=== PATIENT | female | born 2000 | race Caucasian/White ===

== ENCOUNTER 2023-05-26 21:35 | Day surgery (SDC) | payer MEDICAID ==
[2023-05-26 21:59] VITALS: BMI 31.9
[2023-05-26] MEDS ORDERED: Fluconazole 100 MG TAB PO SCH (23:45)
[2023-05-27] MEDS: Acetaminophen 500 MG TAB PO SCH (00:08)
== END 2023-05-27 00:20 | disposition home or self-care (01) ==
LOC: CSHLD/OP 21:35
PROVIDERS: ATTEND Obstetrics & Gynecology
DX: O23.592 Infection of other part of genital tract in pregnancy, second trimester (principal); N89.8 Other specified noninflammatory disorders of vagina; O98.812 Other maternal infectious and parasitic diseases complicating pregnancy, second trimester; B37.31 Acute candidiasis of vulva and vagina; O99.891 Other specified diseases and conditions complicating pregnancy; M54.9 Dorsalgia, unspecified; Z79.899 Other long term (current) drug therapy; Z3A.25 25 weeks gestation of pregnancy
CPT/HCPCS: 87480; 87510; 87660; 99284

== ENCOUNTER 2023-08-31 18:32 | Day surgery (SDC) | payer OTHER ==
[2023-08-31 19:01] VITALS: BMI 37.5
[2023-08-31] MEDS ORDERED: hydrALAZINE 20 MG/ML VIAL SLOW IVP PRN (19:33)
[2023-08-31 20:03] LABS: Bilirubin Neg (Negative); Blood, Urine Negative (Negative); Glucose, Urine (Dipstick) Normal (Negative); Ketone, Urine 5 mg/dL (Negative); Leukocyte 100 (Negative); Nitrite Negative (Negative); Protein, Urine (Dipstick) 15 mg/dl (Neg-Trace)
[2023-08-31 20:08] LABS: Clarity Hazy (Clear)
[2023-08-31 20:14] LABS: CAUTI Indications for Culture Pregnancy; RBC/HPF 0-3 HPF (0-3)
[2023-08-31 20:15] LABS: Bacteria/HPF 2+ HPF (None Seen); Mucous/LPF 2+ LPF (<2+)
[2023-08-31 20:16] LABS: Urine Culture Reflex Yes Yes
[2023-08-31 21:06] LABS: Fetal Membranes Rupture No Membranes Rupture (No Rupture)
== END 2023-08-31 22:47 | disposition home or self-care (01) ==
LOC: CSHLD/OP 18:32
PROVIDERS: ATTEND Family Medicine
DX: O99.891 Other specified diseases and conditions complicating pregnancy (principal); R03.0 Elevated blood-pressure reading, without diagnosis of hypertension; O23.43 Unspecified infection of urinary tract in pregnancy, third trimester; O47.1 False labor at or after 37 completed weeks of gestation; O99.283 Endocrine, nutritional and metabolic diseases complicating pregnancy, third trimester; E86.0 Dehydration; Z79.899 Other long term (current) drug therapy; Z3A.38 38 weeks gestation of pregnancy
CPT/HCPCS: 76819; 81001; 84112; 87086; 99284

== ENCOUNTER 2023-09-05 09:29 | Inpatient (IN) | payer OTHER ==
[2023-09-05 10:11] VITALS: BMI 37.5
[2023-09-05] MEDS ORDERED: hydrALAZINE 20 MG/ML VIAL SLOW IVP PRN ×3 (10:32→20:19)
[2023-09-05 11:05] LABS: Fetal Membranes Rupture RUPTURE DETECTED (No Rupture)
[2023-09-05] MEDS ORDERED: HYDROcodone/Acetaminophen 5/325 mg Tablet PO PRN ×2 (12:17→20:19)
[2023-09-05] MEDS ORDERED: Acetaminophen 500 MG TAB PO PRN (12:17)
[2023-09-05] MEDS ORDERED: fentaNYL 50 mcg/mL 1 mL Vial SLOW IVP PRN (12:17)
[2023-09-05] MEDS ORDERED: Lidocaine 1% (PF) 30 ML VIAL SC PRN (12:17)
[2023-09-05] MEDS ORDERED: Methylergonovine 0.2 MG/ML VIAL IM PRN (12:17)
[2023-09-05] MEDS ORDERED: Diphenoxylate HCl/Atropine Tablet PO PRN (12:17)
[2023-09-05] MEDS ORDERED: Tranexamic Acid 1,000 MG/10 ML VIAL IVP PRN (12:17)
[2023-09-05] MEDS ORDERED: Carboprost 250 MCG/ML AMP IM PRN (12:17)
[2023-09-05] MEDS ORDERED: Misoprostol 200 MCG TAB PR PRN (12:17)
[2023-09-05] MEDS ORDERED: Ondansetron PF 4 MG/2 ML Vial IVP PRN ×2 (12:17→15:00)
[2023-09-05] MEDS ORDERED: Promethazine HCl 25 MG/ML VIAL IM PRN ×2 (12:17→15:00)
[2023-09-05] MEDS ORDERED: Oxytocin 30 units/NS 500 ML 500 ML IV SCH ×2 (12:30)
[2023-09-05 12:42] LABS: Hematocrit 31.9 % (34.9-44.5); Hemoglobin 10.1 g/dL (12.0-15.5); Mean Corpuscular HGB CONC 31.7 g/dL (32.0-36.0); Mean Corpuscular Hemoglobin 24.2 pg (27.0-33.0); Mean Corpuscular Volume 76.3 fL (81.6-98.3); Mean Platelet Volume 11.5 fL (7.4-10.4); Platelet Count 342 10x3/uL (150-450); RBC Distribution Width 14.8 % (11.5-14.5); Red Blood Cell (RBC) Count 4.18 10x6/uL (3.90-5.03); White Blood Cell (WBC) Count 10.5 10x3/uL (3.5-10.5)
[2023-09-05] MEDS: Oxytocin 30 units/NS 500 ML 500 ML IV SCH (12:55)
[2023-09-05 13:02] LABS: HBsAg Index 0.17 S/CO (0-0.99); Hep B Surf Ag - L&D Non-Reactive S/CO (NonReactive)
[2023-09-05 13:03] LABS: Syphilis Antibody Nonreactive (Nonreactive); Syphilis Antibody Index 0.03 S/CO (<1.00 Non-Reactive)
[2023-09-05] MEDS: fentaNYL/Ropivacaine Epidural 100 ML ONE (14:55)
[2023-09-05] MEDS ORDERED: Communication Order-Pharmacy FS SCH (15:00)
[2023-09-05] MEDS ORDERED: ePHEDrine Sulfate 50 MG/10 ML VIAL SLOW IVP PRN (15:00)
[2023-09-05] MEDS ORDERED: Naloxone HCl 0.4 mg/ml Vial IVP PRN ×2 (15:00)
[2023-09-05] MEDS ORDERED: Lactated Ringer's 500 ML IV PRN (15:00)
[2023-09-05] MEDS ORDERED: fentaNYL 2 mcg/Ropivacaine 0.2% Epidural 100 ML CADD EPIDURAL SCH (15:00)
[2023-09-05] MEDS ORDERED: Moisturizing Cream (Eucerin) 113 GM JAR TOP PRN (15:00)
[2023-09-05] MEDS ORDERED: diphenhydrAMINE 50 MG/ML VIAL IVP PRN (15:00)
[2023-09-05] MEDS: Acetaminophen 325 MG TAB PO PRN (18:27)
[2023-09-05] MEDS: Ibuprofen 800 MG TAB PO PRN (19:13)
[2023-09-05] MEDS: Lactated Ringer's 1,000 ML IV SCH (20:18)
[2023-09-05] MEDS ORDERED: Milk Of Magnesia 30 ML UDCUP PO PRN (20:19)
[2023-09-05] MEDS ORDERED: Lanolin Ointment 7 GM TUBE TOP PRN (20:19)
[2023-09-05] MEDS ORDERED: Bisacodyl 10 MG SUPP PR PRN (20:19)
[2023-09-05] MEDS: Docusate 100 MG CAP PO SCH (21:35)
[2023-09-06] MEDS: Boostrix 0.5 ML (Tdap) VIAL (>/=7 yrs of age) IM ONE (00:09)
[2023-09-06] MEDS: Ibuprofen 800 MG TAB PO SCH (02:04)
[2023-09-06] MEDS: Prenatal Vitamin 1 TAB PO SCH (07:59)
[2023-09-06] MEDS ORDERED: Acetaminophen 325 MG TAB PO PRN (08:24)
[2023-09-06 11:37] VITALS: BP 112/63; TEMP 98.9
[2023-09-06] MEDS: Ferrous Sulfate 325 MG TAB PO SCH (12:37)
== END 2023-09-06 19:15 | disposition home or self-care (01) | DRG 806 ==
LOC: CSHLD/OP 09:29 → CSHLD 11:30 → CSHPED 19:50
PROVIDERS: ADMIT Family Medicine; ATTEND Family Medicine
PROC: 10E0XZZ Delivery of Products of Conception, External Approach (ICD-10-PCS; principal; 2023-09-05)
PROC: 0UQGXZZ Repair Vagina, External Approach (ICD-10-PCS; 2023-09-05)
DX: O42.02 Full-term premature rupture of membranes, onset of labor within 24 hours of rupture (principal); O71.4 Obstetric high vaginal laceration alone; Z37.0 Single live birth; Z3A.39 39 weeks gestation of pregnancy; O99.214 Obesity complicating childbirth
CPT/HCPCS: 36415; 51702; 84112; 85027; 86780; 86850; 86900; 86901; 87340; 99285; J2590